=== PATIENT | male | born 1955 | race African-American/Black ===

== ENCOUNTER 2024-08-31 15:28 | Emergency (ER) | payer OTHER ==
[2024-08-31 15:32] VITALS: BP 154/88; PULSE 103; RESP 18; TEMP 98.9; BMI 26.7
[2024-08-31] MEDS ORDERED: ACETAMINOPHEN INJECTION 100 ML ONE (17:37)
[2024-08-31] MEDS ORDERED: KETOROLAC TROMETHAMINE 15 MG/ML VIAL ONE ×2 (17:38→17:56)
[2024-08-31] MEDS: KETOROLAC TROMETHAMINE 15 MG/ML VIAL IVPUSH ONE (18:00)
[2024-08-31] MEDS: ACETAMINOPHEN 1000 MG/100 ML BAG IVPB ONE (18:01)
[2024-08-31 18:16] LABS: ABSOLUTE IMMATURE GRANULOCYTES 0.02 x10^3/uL (0.0-0.031); BASOPHILS # 0.03 x10^3/uL (0.01-0.08); EOSINOPHIL % 4.5 % (0.8-7.0); EOSINOPHILS # 0.23 x10^3/uL (0.04-0.54); MCHC 30.2 g/dl (32.3-36.5); MEAN CELL VOLUME 84.1 fl (79.0-92.2); MEAN PLT VOLUME 10.6 fl (9.4-12.4); MONOCYTE # 0.76 x10^3/uL (0.30-0.82); MONOCYTE % 14.8 % (5.3-12.2); RDW 15.1 % (12.2-16.6)
[2024-08-31 18:35] LABS: CO2 29.0 mmol/L (21-32); GLUCOSE,RANDOM 250.0 mg/dL (74-106)
[2024-08-31 18:38] LABS: CREATININE 0.9 mg/dL (0.55-1.3); SGOT/AST 31.0 U/L (15-37); SGPT/ALT 37.0 U/L (13-61)
[2024-08-31 18:39] LABS: LACTIC ACID 2.1 mmol/L (0.4-2.0)
[2024-08-31 18:40] LABS: TOT PROT 7.3 g/dl (6.4-8.2)
[2024-08-31 18:41] LABS: ALK PHOS 124.0 U/L (45-117)
[2024-08-31 19:31] LABS: HIV INTERPRETATION NEGATIVE (NEGATIVE)
[2024-08-31 19:35] LABS: HCV DIAGNOSTIC IN-HOUSE W/RFLX REACTIVE (NONREACTIVE)
[2024-08-31] MEDS: SODIUM CHLORIDE 0.9% 500 ML INFUS.BAG IV ONE (20:21)
== END 2024-08-31 21:38 | disposition left against medical advice (07) ==
LOC: JER 15:28
PROC: 3E033NZ Introduction of Analgesics, Hypnotics, Sedatives into Peripheral Vein, Percutaneous Approach (ICD-10-PCS; principal; 2024-08-31)
PROC: 3E0333Z Introduction of Anti-inflammatory into Peripheral Vein, Percutaneous Approach (ICD-10-PCS; 2024-08-31)
DX: R10.12 Left upper quadrant pain (principal); R11.0 Nausea; R60.0 Localized edema; R07.81 Pleurodynia
CPT/HCPCS: 36415; 71045-TC-FY; 71260-TC; 74177-TC; 80053; 82010; 83605; 83690; 83735; 85025; 86803; 87389; 87522; 93005; 93010; 96374; 96375; 99285-25